=== PATIENT | male | born 1995 | race Caucasian/White ===

== ENCOUNTER 2019-11-13 11:18 | Emergency (ER) | payer BC, SELFPAY ==
--- NOTE | 2019-11-13 11:22 | ED.GENADULT ---
HPI - General Adult General Chief complaint: Skin/Abscess/Foreign Body Stated complaint: rash Time Seen by Provider: 11/13/19 11:36 Source: patient Mode of arrival: ambulatory Limitations: no limitations History of Present Illness HPI narrative: 23-year-old male patient [facility] with complaints of a rash to the left upper arm x2 months. Patient states he is tried tea tree oil and ieki-sym-lubrono hydrocortisone cream for his symptoms. Patient states that the rash remains. Patient denies any new soaps lotions or detergents. Patient states that he did get new sheets recently but states he did wash them in his regular detergent before putting them on the bed. Patient does have a type II noted to the area however he states that the tattoo is 2 years old and is not new. Denies any allergies that he is aware of. Denies any recent cold symptoms. Related Data Allergies Allergy/AdvReac Type Severity Reaction Status Date / Time No Known Allergies Allergy Unverified 11/13/19 11:30 Review of Systems Review of Systems: Narrative: CONSTITUTIONAL: Denies fever, chills, or sweats. EYES: Denies visual changes, redness, or discharge. ENT: Denies rhinorrhea, congestion, sore throat, or otalgia. CARDIOVASCULAR: Denies chest pain, palpitations, or edema. RESPIRATORY: Denies cough or dyspnea. GASTROINTESTINAL: Denies abdominal pain, nausea, vomiting, or diarrhea. GENITOURINARY: Denies dysuria or hematuria. SKIN: Positive rash to left upper arm x2 months MUSCULOSKELETAL: Denies back pain, joint pain, or myalgia. NEUROLOGIC: Denies headache, numbness, or weakness. PSYCHIATRIC: Denies anxiety or depression. PMFSH Social History Social History Smoking status: Current every day smoker Alcohol intake: current Comments At the time of my signature I agree with nursing past medical history, surgical, social, and family history. There is no relevant family history pertinent to the presenting complaint. Exam Narrative: Exam Narrative: GENERAL: Well-appearing, well-nourished, and in no acute distress. HEAD: Normocephalic, atraumatic. EYES: PERRLA and EOMI. ENT: Nares clear, no rhinorrhea or epistaxis. Mucous membranes moist. NECK: Supple. No lymphadenopathy CHEST: Clear to auscultation. No respiratory distress. HEART: Regular rate and rhythm. No murmur heard. Normal peripheral pulses. ABDOMEN: Soft, nontender, nondistended, normal active bowel sounds. EXTREMITIES: Normal range of motion. No edema. SKIN: Patient has pinpoint red raised bumpy rash noted to the left upper arm. The rash is over his current tattoo and does not go outside of the tattoo area. There is no blisters noted. No open wounds or drainage noted. No pain noted to the area. NEURO: No focal deficits. Alert and oriented x3. Course Vital Signs Vital signs: Vital Signs Temperature 36.2 C L 11/13/19 11:30 Pulse Rate 75 11/13/19 11:30 Respiratory Rate 16 11/13/19 11:30 Blood Pressure 144/83 H 11/13/19 11:30 Pulse Oximetry 100 11/13/19 11:30 Temperature 36.2 C L 11/13/19 11:30 Pulse Rate 75 11/13/19 11:30 Respiratory Rate 16 11/13/19 11:30 Blood Pressure 144/83 H 11/13/19 11:30 Pulse Oximetry 100 11/13/19 11:30 Vital signs reviewed. The patient has been informed that they may have pre-hypertension or Hypertension based on a BP reading in the department. I recommend that the patient call the primary care provider listed on their discharge instructions or a physician of their choice this week to arrange follow up for further evaluation of possible pre-hypertension or Hypertension Medical Decision Making Differential Diagnosis Differential Diagnosis: Differential diagnosis: Contact dermatitis, poison vazquez, poison sumac, psoriasis, eczema, allergic reaction, drug reaction, scabies, tinea syphilis, lung disease, viral exanthema, pityriasis, erythema multiforme. Discussed with patient that this could be some type of contact dermatitis
[2019-11-13 11:30] VITALS: BP 144/83; PULSE 75; RESP 16; TEMP 36.2; O2SAT 100
== END 2019-11-13 11:51 | disposition home or self-care (01) ==
PROVIDERS: Emergency Provider Nurse Practitioner Family
DX: L25.9 Unspecified contact dermatitis, unspecified cause (principal); F17.200 Nicotine dependence, unspecified, uncomplicated
CPT/HCPCS: 99213; G0463